=== PATIENT | male | born 1980 | race Caucasian/White ===

== ENCOUNTER 2016-10-23 04:26 | Emergency (ER) | payer MEDICAID ==
[2016-10-23 07:22] VITALS: BP 139/88
== END 2016-10-23 07:22 | disposition home or self-care (01) ==
LOC: ED 04:26
DX: S61.412A Laceration without foreign body of left hand, initial encounter (principal); W26.0XXA Contact with knife, initial encounter; Y93.89 Activity, other specified; Y99.8 Other external cause status; Y92.89 Other specified places as the place of occurrence of the external cause
CPT/HCPCS: 90715; J2001

== ENCOUNTER 2016-10-25 18:59 | Emergency (ER) | payer MEDICAID ==
[2016-10-25 21:01] VITALS: BP 131/79
== END 2016-10-25 21:01 | disposition home or self-care (01) ==
LOC: ED 18:59
DX: S61.412D Laceration without foreign body of left hand, subsequent encounter (principal); X58.XXXD Exposure to other specified factors, subsequent encounter; Y93.9 Activity, unspecified; Y92.89 Other specified places as the place of occurrence of the external cause; Y99.8 Other external cause status